=== PATIENT | female | born 1960 | race Caucasian/White ===

== ENCOUNTER 2018-01-02 11:31 | Emergency (ER) | payer BC, OTHER ==
[2018-01-02] MEDS ORDERED: Morphine 2 MG/ML Syringe IVPUSH PRN (12:03)
[2018-01-02] MEDS ORDERED: Nitroglycerin 0.4 MG Tab.SL SL PRN (12:03)
[2018-01-02] MEDS ORDERED: Aspirin 81 MG Tab.Chew PO ONE (12:03)
--- NOTE | 2018-01-02 12:06 | EDM.PDOC ---
ED HPI GENERAL MEDICAL PROBLEM - General Chief Complaint: Chest Pain Stated Complaint: TIGHTNESS IN CHEST Time Seen by Provider: 01/02/18 11:57 Source of Information: Reports: Patient, Family, RN Notes Reviewed History Limitations: Reports: No Limitations - History of Present Illness INITIAL COMMENTS - FREE TEXT/NARRATIVE: 57-year-old female presents to the emergency department today with complaint of chest pain. She describes this as a pressure it has been going on for the last 3 days however it progressively got worse today, she feels short of breath no nausea no diaphoresis is currently undergoing treatment for breast cancer, no heart history no diabetes no tobacco products chest Pain Score (Numeric/FACES): 10 - Related Data Allergies Allergy/AdvReac Type Severity Reaction Status Date / Time No Known Allergies Allergy Verified 01/02/18 11:50 Home Meds: Home Meds Anastrozole [Arimidex] 1 mg PO DAILY 01/02/18 [History] Past Medical History [employer] History: Reports: Oncologic (Cancer) History: Reports: Breast - Infectious Disease History Infectious Disease History: Reports: Chicken Pox - Past Surgical History Oncologic Surgical History: Reports: Mastectomy Social & Family History - Tobacco Use Smoking Status *Q: Never Smoker - Caffeine Use Caffeine Use: Reports: Coffee - Recreational Drug Use Recreational Drug Use: No ED ROS GENERAL - Review of Systems Review Of Systems: See Below Constitutional: Reports: No Symptoms HEENT: Reports: No Symptoms Respiratory: Reports: No Symptoms Cardiovascular: Reports: Chest Pain GI/Abdominal: Reports: No Symptoms : Reports: No Symptoms ED EXAM, GENERAL - Physical Exam Exam: See Below Free Text/Narrative:: General: Female, not in any distress, alert and oriented x3 HEENT: head is atraumatic normocephalic, eyes pupils equal round reactive to light, sclera clear no conjunctivitis appreciated. Ears tympanic membranes clear and june landmarks and light reflex are present bilaterally canals are clear. Nose no septal deviation, nares are clear, no blood present. Mouth mucosa is moist and pink no erythema or exudate noted in soft palate, tongue is midline uvula is midline, dentition is intact. Neck: Supple no thyromegaly no tracheal deviation. Nodes: Cervical nodes subclavicular nodes nontender no palpable lymphadenopathy noted. Lungs: clear to auscultation bilaterally with symmetrical respirations, no adventitious noise appreciated. CV: Regular rate and rhythm S1 and S2 appreciated no murmurs rubs or gallops noted. Abdomen: Soft, nontender, no palpable masses or organomegaly appreciated, no distention no guarding bowel sounds are present, . Neuro: Cranial nerves II through XII grossly intact Skin: Warm and dry, intact Extremities: No lower extremity edema appreciated, pedal pulse is +2. Course - Vital Signs Last Recorded V/S: Last Vital Signs Temp 99.5 F 01/02/18 11:54 Pulse 67 01/02/18 11:54 Resp 18 01/02/18 11:54 BP 144/73 H 01/02/18 11:54 Pulse Ox 91 L 01/02/18 11:54 - Orders/Labs/Meds Orders: Active Orders 24 hr Category Date Time Status Cardiac Monitoring [RC] .As Directed Care 01/02/18 12:03 Active EKG Documentation Completion [RC] ASDIRECTED Care 01/02/18 12:03 Active Peripheral IV Care [RC] . DIRECTED Care 01/02/18 13:14 Active Ang Chest [CT] Stat Exams 01/02/18 13:14 Taken Iopamidol [Isovue-370 (76%)] Med 01/02/18 13:30 Active 100 ml IV . DIRECTED Morphine Med 01/02/18 12:03 Active 2 mg IVPUSH Q10M PRN Nitroglycerin [Nitrostat] Med 01/02/18 12:03 Active 0.4 mg SL Q5M PRN Sodium Chloride 0.9% [Normal Saline] 1,000 ml Med 01/02/18 13:15 Active IV ASDIRECTED Sodium Chloride 0.9% [Normal Saline] 100 ml Med 01/02/18 13:30 Active IV ASDIRECTED Sodium Chloride 0.9% [Saline Flush] Med 01/02/18 13:14 Active 10 ml FLUSH ASDIRECTED PRN Sodium Chloride 0.9% [Saline Flush] Med 01/02/18 13:30 Active 10 ml FLUSH ONETIME Peripheral IV Insertion Adult [OM.PC] Urgent Oth 01/02/18 13:14 Ordered EKG 12 Lead [EK] Stat Ther 01/02/18 12:03 Ordered Medication Orders Sodium Chloride (Normal Saline) 1,000 mls @ 500 mls/hr IV ASDIRECTED KASI Last Admin: 01/02/18 13:39 Dose: 500 mls/hr Sodium Chloride (Normal Saline) 100 mls @ 4 mls/sec IV ASDIRECTED KASI Last Admin: 01/02/18 13:33 Dose: 4 mls/sec Iopamidol (Isovue-370 (76%)) 100 ml IV . DIRECTED [facility] Last Admin: 01/02/18 13:33 Dose: 100 ml Morphine Sulfate (Morphine) 2 mg IVPUSH Q10M PRN PRN Reason: Chest Pain Stop: 01/03/18 12:03 Nitroglycerin (Nitrostat) 0.4 mg SL Q5M PRN PRN Reason: Chest Pain Stop: 01/03/18 12:03 Sodium Chloride (Saline Flush) 10 ml FLUSH ASDIRECTED PRN PRN Reason: Keep Vein Open Sodium Chloride (Saline Flush) 10 ml FLUSH ONETIME [facility] Last Admin: 01/02/18 13:34 Dose: 10 ml Labs: Laboratory Tests 01/02/18 01/02/18 Range/Units 12:18 12:18 WBC 6.3 (4.5-11.0) K/uL RBC 4.62 (3.30-5.50) M/uL Hgb 13.3 (12.0-15.0) g/dL Hct 40.0 (36.0-48.0) % MCV 87 (80-98) fL MCH 29 (27-31) pg MCHC 33 (32-36) % Plt Count 194 (150-400) K/uL Neut % (Auto) 52 (36-66) % Lymph % (Auto) 38 (24-44) % Piute % (Auto) 7 H (2-6) % Eos % (Auto) 3 (2-4) % Baso % (Auto) 0 (0-1) % Sodium 142 (140-148) mmol/L Potassium 3.8 (3.6-5.2) mmol/L Chloride 106 (100-108) mmol/L Carbon Dioxide 25 (21-32) mmol/L Anion Gap 11.1 (5.0-14.0) mmol/L BUN 13 (7-18) mg/dL Creatinine 0.8 (0.6-1.0) mg/dL Est Cr Clr Drug Dosing TNP Estimated GFR (MDRD) > 60 (>60) Glucose 100 (74-106) mg/dL Calcium 9.1 (8.5-10.1) mg/dL Total Bilirubin 0.5 (0.2-1.0) mg/dL AST 22 (15-37) U/L ALT 31 (12-78) U/L Alkaline Phosphatase 68 (46-116) U/L Troponin I < 0.017 (0.000-0.056) ng/mL Total Protein 7.1 (6.4-8.2) g/dL Albumin 4.0 (3.4-5.0) g/dL Globulin 3.1 (2.3-3.5) g/dL Albumin/Globulin Ratio 1.3 (1.2-2.2) Meds: Medications Generic Name Dose Route Start Last Admin Trade Name Fregertrudis PRN Reason Stop Dose Admin Sodium Chloride 1,000 mls @ 500 mls/hr 01/02/18 13:15 01/02/18 13:39 Normal Saline IV 500 mls/hr ASDIRECTED KASI Administration Sodium Chloride 100 mls @ 4 mls/sec 01/02/18 13:30 01/02/18 13:33 Normal Saline IV 4 mls/sec ASDIRECTED KASI Administration Iopamidol 100 ml 01/02/18 13:30 01/02/18 13:33 Isovue-370 (76%) IV 100 ml . DIRECTED KASI Administration Morphine Sulfate 2 mg 01/02/18 12:03 Morphine IVPUSH 01/03/18 12:03 Q10M PRN Chest Pain Nitroglycerin 0.4 mg 01/02/18 12:03 Nitrostat SL 01/03/18 12:03 Q5M PRN Chest Pain Sodium Chloride 10 ml 01/02/18 13:14 Saline Flush FLUSH ASDIRECTED PRN Keep Vein Open Sodium Chloride 10 ml 01/02/18 13:30 01/02/18 13:34 Saline Flush FLUSH 10 ml ONETIME KASI Administration Discontinued Medications Generic Name Dose Route Start Last Admin Trade Name Kameron PRN Reason Stop Dose Admin Aspirin 324 mg 01/02/18 12:03 01/02/18 12:09 Aspirin PO 01/02/18 12:04 324 mg ONETIME ONE Administration Ketorolac Tromethamine 60 mg 01/02/18 12:08 01/02/18 12:14 Toradol IM 01/02/18 12:09 60 mg ONETIME ONE Administration Departure - Departure Time of Disposition: 13:56 Disposition: Home, Self-Care 01 Condition: Fair Clinical Impression: Atypical chest pain Referrals: PCP,None [Primary Care Provider] - Forms: ED Department Discharge Additional Instructions: Continue your regular medications, Please followup with your primary care provider in 3-5 days if not better, please call return to the emergency department with worsening of symptoms. - My Orders Last 24 Hours: My Active Orders 01/02/18 12:03 Cardiac Monitoring [RC] .As Directed EKG Documentation Completion [RC] ASDIRECTED Morphine 2 mg IVPUSH Q10M PRN Nitroglycerin [Nitrostat] 0.4 mg SL Q5M PRN EKG 12 Lead [EK] Stat 01/02/18 13:14 Peripheral IV Care [RC] . DIRECTED Ang Chest [CT] Stat Sodium Chloride 0.9% [Saline Flush] 10 ml FLUSH ASDIRECTED PRN Peripheral IV Insertion Adult [OM.PC] Urgent 01/02/18 13:15 Sodium Chloride 0.9% [Normal Saline] 1,000 ml IV ASDIRECTED 01/02/18 13:30 Iopamidol [Isovue-370 (76%)] 100 ml IV . DIRECTED Sodium Chloride 0.9% [Normal Saline] 100 ml IV ASDIRECTED Sodium Chloride 0.9% [Saline Flush] 10 ml FLUSH ONETIME - Assessment/Plan Last 24 Hours: My Active Orders 01/02/18 12:03 Cardiac Monitoring [RC] .As Directed EKG Documentation Completion [RC] ASDIRECTED Morphine 2 mg IVPUSH Q10M PRN Nitroglycerin [Nitrostat] 0.4 mg SL Q5M PRN EKG 12 Lead [EK] Stat 01/02/18 13:14 Peripheral IV Care [RC] . DIRECTED Ang Chest [CT] Stat Sodium Chloride 0.9% [Saline Flush] 10 ml FLUSH ASDIRECTED PRN Peripheral IV Insertion Adult [OM.PC] Urgent 01/02/18 13:15 Sodium Chloride 0.9% [Normal Saline] 1,000 ml IV ASDIRECTED 01/02/18 13:30 Iopamidol [Isovue-370 (76%)] 100 ml IV . DIRECTED Sodium Chloride 0.9% [Normal Saline] 100 ml IV ASDIRECTED Sodium Chloride 0.9% [Saline Flush] 10 ml FLUSH ONETIME Plan: Assessment Acuity = acute Site and laterality = atypical chest pain complicated patient with known history of breast cancer Etiology = unclear etiology Manifestations = none Location of injury = Home Lab values = CBC, CMP unremarkable troponin negative EKG demonstrates a normal sinus rhythm CT scan of the chest reveals no acute process no pulmonary embolism Plan I did review lab work CT scan results with her she did not receive any relief from the Toradol injection I talked to her about other medications for pain control she declined she is going to follow-up with her primary care in the next 3-5 days for further evaluation. This note was dictated using [employer] voice recognition software please call with any questions on syntax or natasha.
[2018-01-02] MEDS ORDERED: Ketorolac 60 MG/2 ML SDV IM ONE (12:08)
--- NOTE | 2018-01-02 12:48 | CR ---
Chest 2V HISTORY: Chest Pain COMPARISON: 11/13/2009 FINDINGS: Lungs appear clear and normally aerated. Cardiomediastinal silhouette is within normal limits. No vas cular redistribution or pleural fluid can be seen. Bony structures and soft tissues are unremarkable. Surgical clips are redemonstrated right axillary region. IMPRESSION: No acute cardiopulmonary disease is identified.
[2018-01-02] MEDS ORDERED: Sodium Chloride 0.9% 10 ML Syringe FLUSH PRN (13:14)
[2018-01-02] MEDS ORDERED: Sodium Chloride 0.9% 1,000 ML IV SCH (13:15)
[2018-01-02] MEDS ORDERED: Iopamidol 755 Mg/ML 100 ML Bottle IV SCH (13:30)
[2018-01-02] MEDS ORDERED: Sodium Chloride 0.9% 10 ML Syringe FLUSH SCH (13:30)
[2018-01-02] MEDS ORDERED: Sodium Chloride 0.9% 100 ML IV SCH (13:30)
--- NOTE | 2018-01-02 14:02 | CT ---
Ang Chest HISTORY: chest pain TECHNIQUE: Spiral enhanced pulmonary CT angiography of the chest was obtained along with coronal and 3-D sagittal reconstructions. FINDINGS: There is good enhancement of the pulmonary arteries bilaterally. I see no abnormal intraluminal filli ng defect, vascular cutoff, or nonenhancement. No pulmonary embolism is identified. Thoracic aorta is normal in caliber. I see no evidence for thoracic aortic aneurysm or dissection. Heart size is withi n normal limits. No hilar or mediastinal mass or adenopathy can be seen. Mild probable interstitial f ibrotic changes are noted at the right apex. There is mild linear atelectasis or scarring left lung b ase. No other pulmonary infiltrate or mass is seen. There is no pleural fluid or chest wall abnormali ty. Visualized upper abdominal structures are unremarkable. No lytic or blastic bony lesion can be se en. Multiple surgical clips are redemonstrated in the right axilla. IMPRESSION: 1. Negative for pulmonary embolism. No evidence for aortic aneurysm or dissection. 2. No other acute chest abnormality identified. 3. Probable mild interstitial fibrotic changes are noted right apex. There is mild linear atelectasis or scarring left lung base. 4. No metastatic disease is identified. Report was called to Officer in the Emergency Department at 1350 hours. Total DLP 350 mGycm
== END 2018-01-02 14:10 | disposition home or self-care (01) ==
LOC: JP.ED 11:31
DX: R07.89 Other chest pain (principal); Z79.899 Other long term (current) drug therapy
CPT/HCPCS: 36415; 71046; 71275; 80053; 84484; 85025; 93005; 96361; 96374; 96375; 99285; A9270; J1885; J7030; J7040; J7050; Q9967

== ENCOUNTER 2018-07-08 07:16 | Day surgery (SDC) | payer BC ==
[~2018-07-08 07:16] MED LIST: Midazolam 1 MG/ML 2 ML SDV ONE; Propofol 200 MG/20 ML SDV ONE; fentaNYL 100 MCG/2 ML SDV ONE
[2018-07-08] MEDS ORDERED: Dextrose 5%-Lactated Ringers 1,000 ML IV SCH (07:45)
--- NOTE | 2018-07-16 07:46 | OR ---
DATE OF PROCEDURE: 07/08/2018 PREOPERATIVE DIAGNOSIS: High risk of colon cancer by virtue of history of breast carcinoma. POSTOPERATIVE DIAGNOSIS: Normal colonoscopic examination. OPERATIVE PROCEDURE: Flexible colonoscopy. ANESTHESIA: IV sedation. INDICATION FOR PROCEDURE: This is a 58-year-old referred for a screening colonoscopy. She is at somewhat high risk for colon carcinoma, given concurrent history of a breast cancer. She is to undergo flexible colonoscopy with biopsies and/or polypectomy as indicated. Potential risks including bleeding and perforation were discussed, and the patient wishes to proceed. DETAILS OF PROCEDURE: The patient was taken to the operating room and placed in a left lateral decubitus position. IV sedation was administered, after which the initial digital rectal exam was performed and was unremarkable. Colonoscope was then passed into the rectum with retroflexion revealing uncomplicated hemorrhoidal columns. The scope was then eventually passed to the cecum. The prep was quite good with there only being a small amount of liquid stool present. Overall, no abnormalities were noted. There were no diverticula, no areas of colitis, no polyps or other signs of neoplasia. The scope was withdrawn, the above findings were reconfirmed, and the procedure was concluded. The patient was taken to the recovery room in satisfactory condition. Recommendation would be to repeat the colonoscopy in 5 years, given the patient's high-risk status with history of the breast carcinoma. Daryl Qiu MD /[id number]
== END 2018-07-08 10:50 | disposition home or self-care (01) ==
LOC: JP.SDS 07:16
PROVIDERS: ATTEND Surgery
DX: Z12.11 Encounter for screening for malignant neoplasm of colon (principal); K64.9 Unspecified hemorrhoids; Z85.3 Personal history of malignant neoplasm of breast
CPT/HCPCS: 45378; J2250; J2704; J3010; J7042

== ENCOUNTER 2023-06-25 06:27 | Day surgery (SDC) | payer BC ==
[2023-06-25] MEDS ORDERED: Propofol 200 MG/20 ML SDV ONE ×2 (06:54→08:03)
[2023-06-25] MEDS ORDERED: fentaNYL 50 MCG/ML SDV ONE (06:54)
[2023-06-25] MEDS ORDERED: Midazolam 1 MG/ML 2 ML SDV ONE (06:54)
[2023-06-25] MEDS ORDERED: Dextrose 5%-Lactated Ringers 1,000 ML IV SCH (07:00)
== END 2023-06-25 09:15 | disposition home or self-care (01) ==
LOC: JP.SDS 06:27
PROVIDERS: ATTEND Surgery
DX: Z12.11 Encounter for screening for malignant neoplasm of colon (principal); K64.9 Unspecified hemorrhoids; Z85.3 Personal history of malignant neoplasm of breast
CPT/HCPCS: 45378; J2250; J2704; J3010; J7121